=== PATIENT | female | born 1995 | race Caucasian/White ===

== ENCOUNTER 2016-03-21 14:09 | Emergency (ER) | payer OTHER ==
[2016-03-21 14:25] VITALS: BP 118/73
--- NOTE | 2016-03-21 14:53 | Emergency Department Report ---
Chief Complaint: Abdominal Pain Stated Complaint: LFT SIDE BODY PAIN Time Seen by Provider: 03/21/16 14:49 - HPI History of Present Illness: Patient is a 20 y/o female who presents due to left flank pain started x 2 hours. Patient states that she has had cough, headache, fatigue. Patient denies any dysuria, hematuria or frequency. Patient denies any diarrhea and states she vomits sometimes when she coughs. Patient denies any fever or chills - ROS Review of Systems: patient denies any fever, chills - Exam Vital Signs: Vital Signs 03/21/16 14:22 Temperature 100.6 F H Pulse Rate 98 H Respiratory 20 Rate Blood Pressure 118/73 O2 Sat by Pulse 99 Oximetry Physical Exam: NAD, left flank pain MSE screening note: Focused history and physical exam performed. Due to findings the following was ordered:abdominal pain protocol ED Disposition for MSE Condition: Stable Instructions: Abdominal Pain (ED)
[2016-03-21 15:25] LABS: Basophils % (Auto) 0.6 % (0.0-1.8); Hematocrit 33.4 % (30.3-42.9); Hemoglobin 10.3 gm/dl (10.1-14.3); Mean Corpuscular HGB Conc 31 % (30-34); Mean Corpuscular Hemoglobin 22 pg (28-32); Mean Corpuscular Volume 71 fl (79-97); Platelet Count 317 K/mm3 (140-440); Red Blood Count 4.73 M/mm3 (3.65-5.03); Red Cell Distribution Width 18.3 % (13.2-15.2)
[2016-03-21 15:36] LABS: Bilirubin,Urine NEG (Negative); Blood,Urine NEG (Negative); Ketones,Urine TR mg/dL (Negative); Leukocyte Esterase,Urine NEG (Negative); Mucus,Urine FEW /HPF; Nitrite,Urine NEG (Negative); Protein,Urine <15 mg/dL mg/dL (Negative); Urobilinogen,Urine < 2.0 mg/dL (<2.0)
[2016-03-21 15:40] LABS: Alanine Aminotransferase 46 units/L (7-56); Albumin 3.8 g/dL (3.9-5); Albumin/Globulin Ratio 0.8 %; Alkaline Phosphatase 48 units/L (35-129); BUN/Creatinine Ratio 8.33; Bilirubin,Total 0.2 mg/dL (0.1-1.2); Blood Urea Nitrogen 5 mg/dL (7-17); Calcium 8.5 mg/dL (8.4-10.2); Carbon Dioxide 20 mmol/L (22-30); Chloride 94.9 mmol/L (98-107); Glucose 89 mg/dL (65-100); Lipase 32 units/L (13-60); Potassium 4.2 mmol/L (3.6-5.0); Sodium 135 mmol/L (137-145); Total Protein 8.4 g/dL (6.3-8.2)
[2016-03-21 15:43] LABS: Anion Gap 24 mmol/L; Bilirubin,Direct < 0.2 mg/dL (0-0.2)
--- NOTE | 2016-03-28 17:22 | ED Elopement Review ---
ED Pt Elopement review - Results review Lab results: Laboratory Tests 03/21/16 03/21/16 03/21/16 15:03 15:03 15:03 WBC 3.0 L RBC 4.73 Hgb 10.3 Hct 33.4 MCV 71 L MCH 22 L MCHC 31 RDW 18.3 H Plt Count 317 Lymph % (Auto) 29.6 [place] % (Auto) 13.5 H Eos % (Auto) 0.0 Baso % (Auto) 0.6 Lymph # 0.9 L [place] # 0.4 Eos # 0.0 Baso # 0.0 Seg Neutrophils % 56.3 Seg Neutrophils # 1.7 L Sodium 135 L Potassium 4.2 Chloride 94.9 L Carbon Dioxide 20 L Anion Gap 24 BUN 5 L Creatinine 0.6 L Estimated GFR > 60 BUN/Creatinine Ratio 8.33 Glucose 89 Calcium 8.5 Total Bilirubin 0.2 Direct Bilirubin < 0.2 Indirect Bilirubin 0.0 AST 75 H ALT 46 Alkaline Phosphatase 48 Total Protein 8.4 H Albumin 3.8 L Albumin/Globulin Ratio 0.8 Amylase 49 Lipase 32 Urine Color Urine Turbidity Urine pH Ur Specific [place] Urine Protein Urine Glucose (UA) Urine Ketones Urine Blood Urine Nitrite Ur Reducing Substances Urine Bilirubin Urine Ictotest Urine Urobilinogen Ur Leukocyte Esterase Urine WBC (Auto) Urine RBC (Auto) U Epithel Cells (Auto) Urine Mucus Urine HCG, Qual 03/21/16 Unknown WBC RBC Hgb Hct MCV MCH MCHC RDW Plt Count Lymph % (Auto) [place] % (Auto) Eos % (Auto) Baso % (Auto) Lymph # [place] # Eos # Baso # Seg Neutrophils % Seg Neutrophils # Sodium Potassium Chloride Carbon Dioxide Anion Gap BUN Creatinine Estimated GFR BUN/Creatinine Ratio Glucose Calcium Total Bilirubin Direct Bilirubin Indirect Bilirubin AST ALT Alkaline Phosphatase Total Protein Albumin Albumin/Globulin Ratio Amylase Lipase Urine Color Yellow Urine Turbidity Clear Urine pH 6.0 Ur Specific [place] 1.016 Urine Protein <15 mg/dl Urine Glucose (UA) Neg Urine Ketones Tr Urine Blood Neg Urine Nitrite Neg Ur Reducing Substances Not Reportable Urine Bilirubin Neg Urine Ictotest Not Reportable Urine Urobilinogen < 2.0 Ur Leukocyte Esterase Neg Urine WBC (Auto) 5.0 Urine RBC (Auto) 2.0 U Epithel Cells (Auto) 7.0 Urine Mucus Few Urine HCG, Qual Negative - Call Back decision Pt Call Back Decision: No action required
== END 2016-03-21 20:45 | disposition left against medical advice (07) ==
LOC: ED 14:09
DX: R10.9 Unspecified abdominal pain (principal); R51 Headache; R53.83 Other fatigue; Z53.21 Procedure and treatment not carried out due to patient leaving prior to being seen by health care provider
CPT/HCPCS: 36415; 80048; 80074; 81001; 81025; 82150; 83690; 85025